=== PATIENT | female | born 1960 | race African-American/Black ===

== ENCOUNTER 2016-06-14 10:29 | Emergency (ER) | payer OTHER, BC ==
[~2016-06-14] VITALS: Ht 167.6 cm; Wt 89.9 kg
[~2016-06-14 10:29] MED LIST: ATARAX,VISTARIL25 MG PO; FLOMAX0.4 MG PO; NAPROSYN500 MG PO; PERCOCET 5/31 TABLET PO; RAMIPRIL5 MG PO; ZOFRAN4 MG PO
[2016-06-14] MEDS ORDERED: FLEXERIL10 MG PO (10:54)
[2016-06-14] MEDS ORDERED: NAPROSYN500 MG PO (10:54)
[2016-06-14 11:04] VITALS: BP 184/94
== END 2016-06-14 11:22 | disposition home or self-care (01) ==
LOC: EME 10:29
DX: S09.90XA Unspecified injury of head, initial encounter (principal); M76.62 Achilles tendinitis, left leg; M62.838 Other muscle spasm; S16.1XXA Strain of muscle, fascia and tendon at neck level, initial encounter; M54.5 Low back pain; V43.52XA Car driver injured in collision with other type car in traffic accident, initial encounter; I10 Essential (primary) hypertension
CPT/HCPCS: 99281; 99284

== ENCOUNTER 2016-06-29 20:03 | Emergency (ER) | payer BC ==
[~2016-06-29] VITALS: Ht 167.6 cm; Wt 85.6 kg
[~2016-06-29 20:03] MED LIST changes: +FLEXERIL10 MG PO
[2016-06-29 20:36] LABS: HEMATOCRIT 38.8 % (36.0-46.0); MCH 26.1 PG (29.0-34.0); MCHC 32.2 G/DL (30.0-36.0); RBC DIS.WIDTH-CV 14.1 % (11.8-14.6); RBC DIS.WIDTH-SD 41.4 % (39-53); RED BLOOD COUNT 4.79 M/uL (3.80-5.20); WHITE BLOOD COUNT 13.3 K/uL (4.1-10.2)
[2016-06-29 20:44] LABS: CHLORIDE 103 mEq/L (99-109); SODIUM 138 mEq/L (136-147)
[2016-06-29 20:46] LABS: GLUCOSE 103 mg/dL (70-99)
[2016-06-29 20:47] LABS: ANION GAP 10 MEQ/L (2-14)
[2016-06-29 20:48] LABS: TOTAL BILIRUBIN 1.3 mg/dL (0.0-1.0)
[2016-06-29 20:49] LABS: ALKALINE PHOSPHATASE 115 IU/L (3-129)
[2016-06-29 20:50] LABS: GFR ESTIMATE (CALCULATED) 55 mL/min/
[2016-06-29 20:51] LABS: UREA NITROGEN (BUN) 15 mg/dL (9-23)
[2016-06-29 20:59] LABS: QUANTITATIVE HCG < 4.0 MIU/ML
[2016-06-29 21:22] LABS: CREATINE KINASE 39 IU/L (1-294)
[2016-06-29 21:36] LABS: MEAN PLAT.VOLUME 10.4 uM^3 (9.5-12.4)
[2016-06-30 00:50] LABS: BILIRUBIN NEGATIVE; BLOOD NEGATIVE; COLOR YELLOW ((YELLOW)); GLUCOSE (STRIP) NEGATIVE; KETONES 5; LEUKOCYTES NEGATIVE; NITRITE NEGATIVE; PROTEIN (STRIP) 30; SPECIFIC GRAVITY 1.013 (1.000-1.030)
[2016-06-30 00:51] LABS: ADD MIUA? NO; UCUL ADDED? NO
[2016-06-30] MEDS ORDERED: LIDOCAINE20 MG/1 M5 PO (01:24)
[2016-06-30] MEDS ORDERED: MOTRIN600 MG PO (01:24)
[2016-06-30 01:48] VITALS: BP 125/82
== END 2016-06-30 01:59 | disposition home or self-care (01) ==
LOC: EME 20:03
DX: B34.9 Viral infection, unspecified (principal); E86.0 Dehydration; R13.10 Dysphagia, unspecified; I10 Essential (primary) hypertension
CPT/HCPCS: 70360; 80053; 81003; 82550; 84702; 85027; 87651 90; 99281; 99284; J1885; J7030; J7040